=== PATIENT | female | born 1945 | race Caucasian/White ===

== ENCOUNTER 2017-03-15 06:20 | Day surgery (SDC) | payer BC ==
[2017-03-10 10:17] VITALS: BMI 27.3
[2017-03-15] MEDS ORDERED: BACITRACIN 3.5 GM OPTHALMIC OINT TUBE ONE (07:04)
[2017-03-15] MEDS ORDERED: OXYMETAZOLINE 0.05% NASAL SOLUTION 15 ML BOTTLE NS ONE (07:05)
[2017-03-15] MEDS ORDERED: POVIDONE-IODINE 5% OPHTHALMIC PREP 30 ML SOLUTION ONE (07:06)
[2017-03-15] MEDS ORDERED: COCAINE HCL 4% TOPICAL SOLUTION 4 ML BOTTLE TP ONE (07:06)
[2017-03-15] MEDS ORDERED: TETRACAINE 0.5% OPHTH SOLN 2 ML BOTTLE ONE (07:06)
[2017-03-15] MEDS ORDERED: LIDOCAINE 1%-EPI 1:100,000 30 ML MDV IJ ONE (07:06)
[2017-03-15] MEDS ORDERED: BUPIVACAINE HCL/PF 0.5% (5MG/ML) 10 ML VIAL ONE (07:06)
[2017-03-15] MEDS ORDERED: PROPOFOL 20 ML ONE ×2 (07:14→08:43)
[2017-03-15] MEDS ORDERED: MIDAZOLAM HCL 2 MG/2 ML SINGLE DOSE VIAL ONE ×2 (07:14→08:19)
[2017-03-15] MEDS ORDERED: LIDOCAINE HCL/PF 2% SDV 5ML VIAL ONE (07:16)
[2017-03-15] MEDS ORDERED: ceFAZolin SODIUM 1 GM VIAL ONE (07:59)
[2017-03-15] MEDS ORDERED: ACETAMINOPHEN 500 MG TABLET (FP) PO PRN (09:23)
[2017-03-15] MEDS ORDERED: ONDANSETRON 4 MG/2 ML VIAL IVPUSH PRN (09:32)
[2017-03-15] MEDS ORDERED: LACTATED RINGERS SOLUTION 1,000 ML IV SCH (09:45)
[2017-03-15] MEDS ORDERED: LABETALOL HCL 5 MG/1 ML (100MG/20 ML VIAL) ONE (10:07)
[2017-03-15] MEDS: LABETALOL HCL 5 MG/1 ML (100MG/20 ML VIAL) IVPUSH ONE ×2 (10:10→10:40)
[2017-03-15 12:21] VITALS: BP 145/79; PULSE 77; TEMP 97.8
--- NOTE | 2017-03-16 10:48 | OP ---
DATE OF OPERATION: 03/15/2017 PREOPERATIVE DIAGNOSIS: Nasal adenoid obstruction right. POSTOPERATIVE DIAGNOSIS: Nasal adenoid obstruction right. PROCEDURE: 1. Diagnostic right. 2. Silicone intubation right lachrymal system. 3. Lachrymal biopsy right. 4. Partial ethmoidectomy right. 5. Partial turbinectomy right. 6. Endoscopy right. 7. Biopsy of papillomas appearing lesion nasal vestibule. SURGEON: Nickolas Gordon M.D. ANESTHESIA: Local with sedation. COMPLICATIONS: None. ESTIMATED BLOOD LOSS: 5 to 10 mL. OPERATIVE REPORT: Patient brought to the operating room, placed on the operating room table. Vital signs were monitored by anesthesia. Timeout was performed. Tetracaine was placed in both eyes. performed from the medial canthus, extending down to the on the right. After intravenous sedation, 50:50 mix of 2% Xylocaine with 1:100,000 epinephrine and 0.5% Marcaine was injected in the area of the down to the antral ethmoid crest by the wall of the nose, nasal flare of the upper and lower lid. A total of 5 mL supraorbital nerve block was given for anesthesia, and then under direct visualization the middle turbinate, middle meatus, and external meatus and septum were injected with 2% Xylocaine with 1:100,000 epinephrine and the right nose was packed with cottonoids plus with Afrin . Patient was prepped and draped in usual sterile fashion exposing both eyes. The left eye was then closed. Incision was made in the on the right. With gentle spreading and blunt dissection, this was carried down to the anterior lachrymal crest . Anterior and medial canthal tendon was identified. The periosteum was incised with a needle. Hemostasis was achieved with cautery throughout the case, and antibiotic irrigation was used throughout the case. Periosteum was reflected laterally and then the lachrymal sac fossa was identified, and the periosteum was reflected until the junction of the maxillary bone and lachrymal bone was identified. The thinner lachrymal bone was then penetrated with a hemostat and a blunt Kerrison rongeur was used to create osteotomy centered on the lachrymal sac fossa extending from the medial canthal tendon to the nasal lachrymal duct. En route to the nasal mucosa, air cells were encountered, and these were extricated with a pituitary forceps, and as was a small amount of turbinate was resected. This allowed for clear opening of the osteotomy into the middle meatus. The anterior nasal mucosa flap was created with a 12 blade, and the punctate was then dilated into the probes, tenting the medial wall sac medially and a 12 blade was used inside the sac, and then it was opened with a Shad scissors and anterior and posterior lachrymal sac flaps were created with relaxing incisions. Lachrymal sac was biopsied, and the posterior flap was looped posteriorly, the anteriorly flap was secured to the anterior nasal mucosal flap, with double-armed mattress 4-0 chromic suture. Prior to tying this, each of the lachrymal system was intubated upper and lower with Flores probes to retrieve the right external nares with a Flores hook. Once intubated, the anterior lachrymal sac flap was closely entered the nasal mucosa flap, and this was also closed periosteum anterior to the osteotomy. Additionally, a single-armed 4-0 chromic sutures were used above to close the lachrymal sac to the periosteum completing the internal fistulization of the lachrymal sac. Antibiotic irrigation was used. The subcuticular tissues were closed with two 6-0 chromic sutures, and the skin was closed with plastic technique in a running 6-0 plain suture. The stents were removed from the probes and then tied with a locking knot in the right external nares and sutured there with a single 6-0 Prolene with minimal tension on the loop of the right medial canthus. Prior to tying the Prolene, however, a small papillomas lesion just above the nasal vestibule was excised and submitted for pathologic study, and cautery was used for hemostasis in this area. Afrin was sprayed in the nose after the endoscope was introduced and the blood was suctioned out of the right nostril demonstrating good opening without impingement, although there was some septal deviation, there was minimal impingement on the osteotomy site of the tubes, and photographs were taken. Afrin was sprayed in the nose, bacitracin ointment was placed on the sutures, and the right medial canthus, and the patient was taken to recovery room in stable condition. NICKOLAS GORDON M.D. [id number]
--- NOTE | 2017-03-18 15:26 | PATH ---
Surgical Pathology Report Patient Name: MAYANK LOPEZ [facility]. Rec. #: [id number] /Age/Gender: 1945 (Age: 71) / F Account: [id number] Location: [facility] Taken: 03/15/2017 Received: 03/15/2017 Reported: 03/18/2017 Physicians: Mickey Anthony Specimen(s) Received A: RIGHT NASAL BIOPSY B: RIGHT LACRIMAL SAC BIOPSY C: TURBINATES RIGHT EYE D: RIGHT ETHMOID Clinical History Blocked right tear duct Final Diagnosis A. RIGHT NASAL, BIOPSY: SQUAMOUS PAPILLOMA. B. LACRIMAL SAC, RIGHT, BIOPSY: LACRIMAL SAC TISSUE SHOWING MARKED CHRONIC INFLAMMATION AND FIBROSIS. C. TURBINATES, RIGHT, EXCISION: RESPIRATORY-TYPE MUCOSA SHOWING MILD CHRONIC INFLAMMATION. BONE WITH NO PATHOLOGIC FINDINGS. D. ETHMOID, RIGHT, EXCISION: BONE WITH NO PATHOLOGIC FINDINGS. RESPIRATORY-TYPE MUCOSA SHOWING MILD CHRONIC INFLAMMATION. Electronically Signed Glendy Donis M.D. Gross Description A. Received in formalin labeled "right nasal biopsy," is a 0.1 cm greatest dimension hendrickson soft tissue fragment. The specimen is submitted in toto in one cassette. B. Received in formalin labeled "lacrimal sac biopsy," are 2 hendrickson soft tissue fragments measuring 0.1 and 0.3 cm in greatest dimension. The specimens are submitted in toto in one cassette. C. Received in formalin labeled "turbinates right eye," is a 0.9 x 0.6 x 0.2 cm aggregate of hendrickson-hernandez soft tissue and possible bone fragments. The specimen is submitted in toto in one cassette, following decalcification. D. Received in formalin labeled "right ethmoid," is a 0.7 x 0.6 x 0.2 cm aggregate of hendrickson bone fragments. The specimen is entirely submitted in one cassette, following decalcification. 03/16/201703/16/2017
== END 2017-03-15 12:00 | disposition home or self-care (01) ==
LOC: FASU 06:20
PROVIDERS: ATTEND Ophthalmology
PROC: 09BU0ZZ Excision of Right Ethmoid Sinus, Open Approach (ICD-10-PCS; 2017-03-15)
PROC: 09BL0ZX Excision of Nasal Turbinate, Open Approach, Diagnostic (ICD-10-PCS; 2017-03-15)
PROC: 08BX0ZZ Excision of Right Lacrimal Duct, Open Approach (ICD-10-PCS; principal; 2017-03-15 08:12)
DX: H04.553 Acquired stenosis of bilateral nasolacrimal duct (principal); J34.89 Other specified disorders of nose and nasal sinuses
CPT/HCPCS: 88304-TC; 88305-TC; 94760

== ENCOUNTER 2024-09-04 07:21 | Day surgery (SDC) | payer OTHER ==
[2024-08-31 10:34] VITALS: BMI 24.5
[2024-09-04] MEDS ORDERED: PROPOFOL 20 ML ONE (10:33)
[2024-09-04] MEDS ORDERED: MIDAZOLAM HCL 2 MG/2 ML SINGLE DOSE VIAL ONE (10:33)
[2024-09-04] MEDS ORDERED: OXYMETAZOLINE 0.05% NASAL SOLUTION 15 ML BOTTLE NS ONE (10:38)
[2024-09-04] MEDS ORDERED: ERYTHROMYCIN 0.5% OPHTHALMIC OINTMENT 3.5 GM TUBE ONE (10:38)
[2024-09-04] MEDS ORDERED: ceFAZolin SODIUM 1 GM VIAL ONE ×2 (10:38→11:19)
[2024-09-04] MEDS ORDERED: POVIDONE-IODINE 5% OPHTHALMIC PREP 30 ML SOLUTION ONE (10:39)
[2024-09-04] MEDS ORDERED: TETRACAINE 0.5% OPHTH SOLN 2 ML BOTTLE ONE (10:39)
[2024-09-04] MEDS ORDERED: LIDOCAINE 1%/EPI 1:100000 (20 ML MULTI DOSE VIAL) ONE ×2 (10:39→11:18)
[2024-09-04] MEDS ORDERED: ONDANSETRON 4 MG/2 ML VIAL ONE ×2 (11:19→12:29)
[2024-09-04] MEDS ORDERED: DEXAMETHASONE SOD PHOSPHATE 4 MG/1 ML VIAL ONE (11:19)
[2024-09-04] MEDS ORDERED: ONDANSETRON 4 MG/2 ML VIAL IVPUSH PRN (12:47)
[2024-09-04] MEDS ORDERED: LACTATED RINGERS SOLUTION 1,000 ML IV SCH (13:00)
[2024-09-04] MEDS ORDERED: oxyCODONE HCL 5 MG TABLET ONE (13:35)
[2024-09-04] MEDS: oxyCODONE HCL 5 MG TABLET PO PRN (13:35)
[2024-09-04 16:24] VITALS: BP 150/70; PULSE 76; TEMP 97.2
[2024-09-04 16:25] VITALS: RESP 16
== END 2024-09-04 14:50 | disposition home or self-care (01) ==
LOC: FASU 07:21
PROVIDERS: ATTEND Ophthalmology
PROC: 081Y0Z3 Bypass Left Lacrimal Duct to Nasal Cavity, Open Approach (ICD-10-PCS; principal; 2024-09-04 11:24)
DX: H04.552 Acquired stenosis of left nasolacrimal duct (principal); H04.202 Unspecified epiphora, left side
CPT/HCPCS: 88304-TC; 94760